=== PATIENT | male | born 1995 ===

== ENCOUNTER 2017-04-18 06:38 | Emergency (ER) | payer MEDICAID ==
[2017-04-18 06:57] VITALS: O2SAT 100
[2017-04-18] MEDS ORDERED: Tetracaine 0.5% Ophth 2 ML BOTTLE OS ONE (07:45)
[2017-04-18] MEDS ORDERED: Tetracaine 0.5% Ophth (OR ONLY) ONE (07:51)
--- NOTE | 2017-04-18 08:06 | C.PDOC ---
History Of Present Illness 21 y/o male presents to ED with c/o left eye pain, light sensitivity, and redness, gradually developing since this morning. Patient states he slept with contacts in which triggered symptoms. Otherwise, denies blurry or double vision , visual changes, headache, dizziness, nausea, vomiting, or other associated symptoms. Time Seen by Provider: 04/18/17 07:36 Chief Complaint (Nursing): Eye Problem History Per: Patient History/Exam Limitations: no limitations Onset/Duration Of Symptoms: Hrs Current Symptoms Are (Timing): Still Present Injury To Eye?: No Wears Contact Lens?: Yes Associated Symptoms: Pain Recent travel outside of the [place]: No Past Medical History Reviewed: Historical Data, Nursing Documentation, Vital Signs Vital Signs: Last Vital Signs Temp 98.0 F 04/18/17 08:25 Pulse 60 04/18/17 08:25 Resp 18 04/18/17 08:25 BP 109/72 04/18/17 08:25 Pulse Ox 100 04/18/17 08:25 - Medical History PMH: No Chronic Diseases Family History: States: Unknown Family Hx - Social History Hx Alcohol Use: Yes Hx Substance Use: No - Immunization History Hx Tetanus Toxoid Vaccination: No Hx Influenza Vaccination: No Hx Pneumococcal Vaccination: No Review Of Systems Except As Marked, All Systems Reviewed And Found Negative. Constitutional: Negative for: Fever, Chills Eyes: Positive for: Pain, Redness. Negative for: Vision Change Respiratory: Negative for: Cough Gastrointestinal: Negative for: Nausea, Vomiting Skin: Negative for: Rash Neurological: Negative for: Headache, Dizziness Physical Exam - Physical Exam Appears: Non-toxic, No Acute Distress Skin: Normal Color, Warm, Dry Head: Atraumatic, Normacephalic Eye(s): bilateral: PERRL, EOMI (no pain or limitation on extraocular movement), right: Normal Inspection, left: Other (diffuse conjunctival injection, fluorescein uptake in center - no corneal ulcer or foreiegn bodies) Ear(s): Bilateral: Normal Nose: No Flaring Oral Mucosa: Moist Throat: Normal, No Erythema, No Exudate, No Drooling Neck: Supple Neurological/Psych: Oriented x3, Normal Speech, Normal Cognition ED Course And Treatment O2 Sat by Pulse Oximetry: 100 (RA) Pulse Ox Interpretation: Normal Progress Note: On re-evaluation, pt is afebrile, hemodynamicaly stable. Non- toxic. Pt reports, moderate improvement in Left eye pain after tetracaine applied. VA: R 20/70, L 20/100, B/L 20/50 w/o correction. left eye: exam c/w corneal abrasion, no pain or discomfort on extraorbital movemnet. No epriorbital edema or erythema. neck: Supple. ENT: no acute findings. Neuorlogicaly intact. Eye patch applied. Abx opht qtt given. Pt advised on course of ds. Pt ref. to f/u with opht in 1-2 days for re-eavl. return to Ed if any worsening or new changes. Disposition Counseled Patient/Family Regarding: Diagnosis, Need For Followup, Rx Given - Disposition Referrals: Uvaldo Jimenez MD [Staff Provider] - Disposition: HOME/ ROUTINE Disposition Time: 08:04 Condition: STABLE Additional Instructions: Eye shield with eye patch for 1 week use medication as prescribed Follow up with ophthalmology in 2-3 days for re-evaluation. return to ED if any worsening or new changes. Prescriptions: Neomycin/Polymyxin/Dexamethaso [Dexamethasone/Neomycin/Polymyxin 5 Ml] 2 drop LEFTEYE Q4 #1 bottle Instructions: Corneal Abrasion (ED) Forms: [facility] (Salvadorean) - Clinical Impression Clinical Impression: Corneal abrasion - PA / CASTER OPERATOR / Resident Statement MD/DO has reviewed & agrees with the documentation as recorded. - Scribe Statement The provider has reviewed the documentation as recorded by the Scribe SM All medical record entries made by the Scribe were at my direction and personally dictated by me. I have reviewed the chart and agree that the record accurately reflects my personal performance of the history, physical exam, medical decision making, and the department course for this patient. I have also personally directed, reviewed, and agree with the discharge instructions and disposition.
[2017-04-18 08:35] VITALS: BP 109/72; PULSE 60; RESP 18; TEMP 98
== END 2017-04-18 08:28 | disposition home or self-care (01) ==
LOC: C.ER 06:38
DX: S05.02XA Injury of conjunctiva and corneal abrasion without foreign body, left eye, initial encounter (principal); X58.XXXA Exposure to other specified factors, initial encounter

== ENCOUNTER 2018-03-07 13:48 | Emergency (ER) | payer MEDICAID ==
[2018-03-07 14:01] VITALS: BP 138/81; PULSE 100; RESP 18; TEMP 98.9; O2SAT 100
--- NOTE | 2018-03-07 14:29 | C.PDOC ---
History Of Present Illness 22 yo male come in for evaluation of lower back pain gradually developed for past few days. Pt reports, pain is localized, " feels like back stiff". Admits, heavy lifting at work. Otherwise, pt denies known trauma or injury, fever, chills, sore throat, abd. pain, N/V/D, UTI sx, denies saddle anesthesia, incontinence, denies weakness, sensory or vascular deficits to B/L LEs. Ambulate to Ed for evaluation, not in any apparent distress. Time Seen by Provider: 03/07/18 14:05 Chief Complaint (Nursing): Back Pain History Per: Patient Onset/Duration Of Symptoms: Gradual Past Medical History Reviewed: Historical Data, Nursing Documentation, Vital Signs Vital Signs: Last Vital Signs Temp 98.9 F 03/07/18 14:00 Pulse 100 H 03/07/18 14:00 Resp 18 03/07/18 14:00 BP 138/81 03/07/18 14:00 Pulse Ox 100 03/07/18 14:00 - Medical History PMH: No Chronic Diseases Surgical History: No Surg Hx Family History: States: Unknown Family Hx - Social History Hx Alcohol Use: Yes Hx Substance Use: No - Immunization History Hx Tetanus Toxoid Vaccination: No Hx Influenza Vaccination: No Hx Pneumococcal Vaccination: No Review Of Systems Except As Marked, All Systems Reviewed And Found Negative. Constitutional: Negative for: Fever, Chills Eyes: Negative for: Vision Change ENT: Negative for: Throat Pain Cardiovascular: Negative for: Chest Pain, Palpitations Respiratory: Negative for: Cough, Shortness of Breath, Wheezing Gastrointestinal: Negative for: Nausea, Vomiting, Abdominal Pain, Diarrhea Genitourinary: Negative for: Incontinence Musculoskeletal: Positive for: Back Pain Skin: Negative for: Rash, Bruising Neurological: Negative for: Weakness, Numbness Physical Exam - Physical Exam Appears: Well, Non-toxic, No Acute Distress Skin: Normal Color, Warm, Dry, No Rash, No Ecchymosis Head: Normacephalic Eye(s): bilateral: PERRL Nose: No Flaring, No Discharge Oral Mucosa: Moist Throat: No Erythema, No Drooling Neck: Trachea Midline, Supple Cardiovascular: Rhythm Regular, No Murmur, No JVD Respiratory: No Decreased Breath Sounds, No Accessory Muscle Use, No Stridor, No Wheezing Gastrointestinal/Abdominal: Soft, No Tenderness, No Distention, No Guarding, No Rebound Back: No CVA Tenderness, No Vertebral Tenderness, Paraspinal Tenderness (mild, lumbar) Extremity: Normal ROM, No Pedal Edema, No Deformity, No Swelling Neurological/Psych: Oriented x3, Normal Speech, Normal Motor, Normal Sensation, Normal Reflexes ED Course And Treatment O2 Sat by Pulse Oximetry: 100 Pulse Ox Interpretation: Normal Progress Note: On re-evaluation, pt is afebrile, hemodynamicaly stable. Non- toxic. Ambulatory in ED with stable gait. ENT: No acute findings. Neck: Supple, (-) midline tenderness. Lungs: CTA B/L, BS equal B/L. Abd: benign. Neurologicaly intact. Pt has clinical findings c/w lower back strain. Pt advised. ref. to f/u with PMD in2 -3 days for re-evaluation. return to ED if any worsening or new changes. Disposition Counseled Patient/Family Regarding: Diagnosis, Need For Followup, Rx Given - Disposition Referrals: [facility] [Outside] Disposition: HOME/ ROUTINE Disposition Time: 14:24 Condition: STABLE Additional Instructions: Light duty to lower back, avoid heavy lifting, bending take medication as prescribed Follow up with PMD in 2-3 days for re-evaluation. return to ED if any worsening or new changes. Prescriptions: Ibuprofen [Motrin Tab] 600 mg PO TID #20 tab Instructions: Low Back Pain (DC) Forms: [facility] (German), Work Excuse - Clinical Impression Clinical Impression: Low back strain
== END 2018-03-07 14:33 | disposition home or self-care (01) ==
LOC: C.ER 13:48
DX: S39.012A Strain of muscle, fascia and tendon of lower back, initial encounter (principal); X50.9XXA Other and unspecified overexertion or strenuous movements or postures, initial encounter

== ENCOUNTER 2018-09-30 13:28 | Emergency (ER) | payer MEDICAID ==
[2018-09-30 13:36] VITALS: BP 139/88; PULSE 81; RESP 18; TEMP 97.7; O2SAT 99
--- NOTE | 2018-09-30 13:53 | C.PDOC ---
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 Last episode was 3 days ago and is now resolved. Pt states that he missed work due to his condition back in May and that he was fired as a result. Time Seen by Provider: 09/30/18 13:41 Chief Complaint (Nursing): Eye Problem History Per: Patient Onset/Duration Of Symptoms: Days (about 2 years), Intermittent Episodes Current Symptoms Are (Timing): Better Injury To Eye?: No Severity: Moderate Quality: "Pain" Wears Contact Lens?: Yes Associated Symptoms: Discharge From Eye (tearing) Additional History Per: Prior Records Past Medical History Reviewed: Historical Data, Nursing Documentation, Vital Signs Vital Signs: Last Vital Signs Temp 97.7 F 09/30/18 13:29 Pulse 81 09/30/18 13:29 Resp 18 09/30/18 13:29 BP 139/88 09/30/18 13:29 Pulse Ox 99 09/30/18 13:29 - Medical History Other PMH: Keratoconus Family History: States: Unknown Family Hx - Social History Hx Alcohol Use: No Hx Substance Use: Yes - Immunization History Hx Tetanus Toxoid Vaccination: No Hx Influenza Vaccination: No Hx Pneumococcal Vaccination: No Review Of Systems Except As Marked, All Systems Reviewed And Found Negative. Constitutional: Negative for: Fever, Weakness Eyes: Positive for: Pain, Redness. Negative for: Vision Change, Eyelid Inflammation Gastrointestinal: Negative for: Nausea, Vomiting Musculoskeletal: Negative for: Neck Pain Skin: Negative for: Rash Neurological: Negative for: Weakness, Numbness, Headache Physical Exam - Physical Exam Appears: Non-toxic, No Acute Distress Skin: Normal Color, Warm, Dry, No Rash Head: Atraumatic, Normacephalic Eye(s): bilateral: PERRL, EOMI Neck: Normal ROM, Supple Extremity: Normal ROM Neurological/Psych: Oriented x3, Normal Speech, Normal Cranial Nerves ED Course And Treatment O2 Sat by Pulse Oximetry: 99 Pulse Ox Interpretation: Normal Disposition Counseled Patient/Family Regarding: Diagnosis, Need For Followup - Disposition Referrals: Franklin Torrez [Staff Provider] - Disposition: HOME/ ROUTINE Disposition Time: 13:55 Condition: STABLE Additional Instructions: Follow up with an Marketing Researcher. Return to the ER if you develop change in vision, worsening of symptoms or if you have any other concerns. Forms: [facility] (Uzbek), General Discharge Instructions, Work Excuse - Clinical Impression Clinical Impression: Keratoconus of both eyes
== END 2018-09-30 14:14 | disposition home or self-care (01) ==
LOC: C.ER 13:28
DX: H18.603 Keratoconus, unspecified, bilateral (principal)